=== PATIENT | female | born 1980 | race Caucasian/White ===

== ENCOUNTER 2016-08-17 17:23 | Emergency (ER) | payer SELFPAY ==
--- NOTE | 2016-08-17 17:29 | ER Document Report ---
ED Medical Screen (RME) - General Stated Complaint: RIGHT EAR/ NECK PAIN Mode of Arrival: Ambulatory Information source: Patient Notes: Patient presents emergency department with right-sided neck pain for the past week. Denies trauma. Denies fever or diarrhea reports vomited 2 days ago when she started her menses. I have greeted and performed a rapid initial assessment of this patient. A comprehensive ED assessment and evaluation of the patient, analysis of test results and completion of the medical decision making process will be conducted by additional ED providers. TRAVEL OUTSIDE OF THE [place] IN LAST 30 DAYS: No - Related Data Allergies/Adverse Reactions: codeine [Codeine] Adverse Reaction (Verified 09/25/12 07:18) Nausea oxycodone [Oxycodone] Adverse Reaction (Verified 09/25/12 07:18) Nausea Past Medical History Pulmonary Medical History: Denies: Hx Tuberculosis Neurological Medical History: Denies: Hx Seizures Renal/ Medical History: Reports: Hx Kidney Stones Psychiatric Medical History: Reports: Hx Depression Past Surgical History: Reports: Hx Cardiac Surgery - 'hole in heart' repair open heart surgery, Hx Section - 2, Hx Urinary Tract Surgery - urinary stent, only one functioning kidney.. Denies: Hx Hysterectomy - SERUM HCG NEGATIVE, Hx Pacemaker - Immunizations Hx Diphtheria, Pertussis, Tetanus Vaccination: Yes
[2016-08-17] MEDS ORDERED: CIPROFLOXACIN HCL/DEXAMETH OTIC DROP 7.5 ML AD ONE (20:58)
[2016-08-17] MEDS ORDERED: AMOXICILLIN TRIHYDRATE 500 MG CAPSULE PO ONE (20:58)
[2016-08-17] MEDS ORDERED: NAPROXEN 250 MG TABLET PO ONE (20:59)
--- NOTE | 2016-08-17 21:40 | ER Document Report ---
ED ENT - General Chief Complaint: Ear Pain Stated Complaint: RIGHT EAR/ NECK PAIN Mode of Arrival: Ambulatory Information source: Patient Notes: 36-year-old female presents to the emergency department complaining of intermittently persistent pain to her right ear area that radiates down her neck. Reports onset of symptoms approximately one week ago with associated metallic taste in her mouth when eating or drinking and slight sore throat. States had cough/congestion/uri symptoms over last week which have resolved. Denies fever, ear drainage, difficulty breathing or swallowing, chest pain or shortness of breath. TRAVEL OUTSIDE OF THE [place] IN LAST 30 DAYS: No - HPI Patient complains to provider of: Ear problem Onset/Duration: Intermittent, Persistent Quality of pain: Achy Severity: Moderate Pain Level: 3 Context: Recent Illness Location of pain: Ears, Neck, Throat Similar symptoms previously: No Recently seen / treated by doctor: No - Related Data Allergies/Adverse Reactions: codeine [Codeine] Adverse Reaction (Verified 08/17/16 17:30) Nausea oxycodone [Oxycodone] Adverse Reaction (Verified 08/17/16 17:30) Nausea Past Medical History - General Information source: Patient - Social History Smoking Status: Former Smoker Frequency of alcohol use: None Drug Abuse: None Lives with: Family Family History: Reviewed & Not Pertinent Pulmonary Medical History: Denies: Hx Tuberculosis Neurological Medical History: Denies: Hx Seizures Renal/ Medical History: Reports: Hx Kidney Stones. Denies: Hx Peritoneal Dialysis Psychiatric Medical History: Reports: Hx Depression Past Surgical History: Reports: Hx Cardiac Surgery - 'hole in heart' repair open heart surgery, Hx Section - 2, Hx Urinary Tract Surgery - urinary stent, only one functioning kidney.. Denies: Hx Hysterectomy, Hx Pacemaker - Immunizations Hx Diphtheria, Pertussis, Tetanus Vaccination: Yes Review of Systems - Review of Systems Constitutional: No symptoms reported EENT: See HPI Cardiovascular: No symptoms reported Respiratory: No symptoms reported Gastrointestinal: No symptoms reported Genitourinary: No symptoms reported Female Genitourinary: No symptoms reported Musculoskeletal: No symptoms reported Skin: No symptoms reported Hematologic/Lymphatic: No symptoms reported Neurological/Psychological: No symptoms reported -: Yes All other systems reviewed and negative Physical Exam - Vital signs Vitals: Temp Pulse Resp BP Pulse Ox 98.3 F 76 18 122/69 97 08/17/16 17:30 08/17/16 17:30 08/17/16 17:30 08/17/16 17:30 08/17/16 17:30 - General General appearance: Appears well, Alert In distress: None - HEENT Head: Normocephalic, Atraumatic, Other - no mastoid tenderness, swelling, erythema, or warmth Eyes: Normal Conjunctiva: Normal Pupils: PERRL Ears: Normal - lef t, Pinna tenderness - right, Tragus tenderness - right External canal: Cerumen impaction - Left external canal normal. Moderate amount of cerumen on initial evaluation of right TM. After irrigation cerumen was cleared and there appears to be a growth/mass to posterior aspect of mid external canal extending 3/4 of canal diameter however not occluding. Tympanic membrane: Normal - Left TM wnl. Right TM not visualized due to mass Hearing loss: No: Left, Right Sinus: Normal. No: Tenderness Nasal: Normal Mouth/Lips: Normal Mucous membranes: Normal, Moist Pharynx: Erythema, Tonsillar hypertrophy - right tonsil 2+. no peritonsillar abscess or exudate. left tonsil wnl. No: Normal, Blood in hypopharynx, Exudate , Peritonsillar abscess, Post nasal drainage, Retropharyngeal abscess, Uvular edema, Potential airway comprom., Other Neck: Normal. No: Anterior cervical chain, Posterior cervical chain, Lymphadenopathy, Meningismus, Subcutaneous emphysema - Respiratory Respiratory status: No respiratory distress Chest status: Nontender Breath sounds: Normal - CTAB Chest palpation: Normal - Cardiovascular Rhythm: Regular Heart sounds: Normal auscultation Pulses: Normal: Radial Normal capillary refill: Yes - Back Back: Normal, Nontender - Neurological Neuro grossly intact: Yes Cognition: Normal Orientation: AAOx4 [place] Coma Scale Eye Opening: Spontaneous [place] Coma Scale Verbal: Oriented Lisa Coma Scale Motor: Obeys Commands Lisa Coma Scale Total: 15 Speech: Normal Motor strength normal: LUE, RUE, LLE, RLE Sensory: Normal - Psychological Associated symptoms: Normal affect, Normal mood - Skin Skin Temperature: Warm Skin Moisture: Dry Skin Color: Normal Course - Re-evaluation Re-evalutation: 08/17/16 21:46 Patient hemodynamically stable, in no distress, afebrile, nontoxic, and appears well-hydrated. Discussed patient presentation and findings with ED physician Dr. Toribio who recommends treatment for possible ENT infection/otitis and will follow up with ENT on Friday. Patient appears stable for discharge at this time and agrees with home care, follow-up, and ED return precautions. - Vital Signs Vital signs: Temp Pulse Resp BP Pulse Ox 98.3 F 74 16 113/52 L 100 08/17/16 22:04 08/17/16 22:04 08/17/16 22:04 08/17/16 22:04 08/17/16 22:04 Discharge - Discharge Clinical Impression: Ear canal mass Qualifiers: Laterality: right Qualified Code(s): H93.8X1 - Other specified disorders of right ear Otitis externa Qualifiers: Otitis externa type: unspecified type Laterality: right Chronicity: acute Qualified Code(s): H60.501 - Unspecified acute noninfective otitis externa, right ear Condition: Stable Disposition: HOME, SELF-CARE Instructions: Otitis Externa ([facility]), Amoxicillin ([facility]), Tonsillitis ([facility]), Anti- Inflammatory Medication ([facility]), Use of Ear Drops ([facility]), Acetaminophen Additional Instructions: Use the provided antibiotic eardrops as directed: - Ciprodex: 4 drops into the right ear twice daily for 7 days Follow-up with ENT on Friday as discussed. Return to the emergency department for any persistent or worsening symptoms, or any concerns. Prescriptions: Amoxicillin 1 tab PO TID 7 Days Naproxen 500 mg PO BIDP PRN #10 tablet PRN Reason: Forms: Return to Work Referrals: [facility] [Provider Group] - 08/19/16
[2016-08-17 22:05] VITALS: BP 113/52
== END 2016-08-17 22:05 | disposition home or self-care (01) ==
LOC: ER 17:23
DX: H93.8X1 Other specified disorders of right ear (principal); H60.501 Unspecified acute noninfective otitis externa, right ear; H92.01 Otalgia, right ear; M54.2 Cervicalgia; Z88.6 Allergy status to analgesic agent; Z87.891 Personal history of nicotine dependence; Z87.442 Personal history of urinary calculi
CPT/HCPCS: 99283; 87070; 87880; J3490

== ENCOUNTER 2016-09-28 18:12 | Emergency (ER) | payer SELFPAY ==
[2016-09-28] MEDS ORDERED: ACETAMINOPHEN 325 MG TABLET PO ONE (19:11)
--- NOTE | 2016-09-28 19:13 | ER Document Report ---
HPI - HPI Patient complains to provider of: left knee injury Onset: Other Onset/Duration: Persistent - 2 days ago Quality of pain: Achy Pain Level: 4 Context: Patient states that she was stepping up into a truck, the wind blew the door causing it to crush her left knee. Patient complains of continued left knee pain since then. Associated Symptoms: Other - Left knee pain Exacerbated by: Movement Relieved by: Denies Similar symptoms previously: No Recently seen / treated by doctor: No - ROS ROS below otherwise negative: Yes Systems Reviewed and Negative: Yes All other systems reviewed and negative - CONSTITUTIONAL Constitutional: DENIES: Fever - NEURO Neurology: DENIES: Weakness - GASTROINTESTINAL Gastrointestinal: DENIES: Nausea, Patient vomiting - REPRODUCTIVE Reproductive: DENIES: : - MUSCULOSKELETAL Musculoskeletal: REPORTS: Extremity pain - Left knee. DENIES: Swelling - DERM Skin Color: Normal Skin Problems: None Past Medical History - General Information source: Patient - Social History Smoking Status: Current Every Day Smoker - E-cigarette Frequency of alcohol use: None Drug Abuse: None Occupation: none Lives with: Family Family History: Reviewed & Not Pertinent Patient has suicidal ideation: No Patient has homicidal ideation: No Pulmonary Medical History: Denies: Hx Tuberculosis Neurological Medical History: Denies: Hx Seizures Renal/ Medical History: Reports: Hx Kidney Stones. Denies: Hx Peritoneal Dialysis Psychiatric Medical History: Reports: Hx Depression Past Surgical History: Reports: Hx Cardiac Surgery - 'hole in heart' repair open heart surgery, Hx Section - 2, Hx Urinary Tract Surgery - urinary stent, only one functioning kidney.. Denies: Hx Hysterectomy, Hx Pacemaker - Immunizations Hx Diphtheria, Pertussis, Tetanus Vaccination: Yes Vertical Provider Document - CONSTITUTIONAL Agree With Documented VS: Yes Exam Limitations: No Limitations General Appearance: WD/WN, No Apparent Distress - INFECTION CONTROL TRAVEL OUTSIDE OF THE [place] IN LAST 30 DAYS: No - HEENT HEENT: Atraumatic, Normocephalic - NECK Neck: Normal Inspection - RESPIRATORY Respiratory: No Respiratory Distress O2 Sat by Pulse Oximetry: 99 - CARDIOVASCULAR Pulses: Normal: Posterior tibial - MUSCULOSKELETAL/EXTREMETIES Musculoskeletal/Extremeties: MAEW, Tender - Left knee tenderness to inferior and lateral compartments, no joint effusion, no laxity with varus or valgus maneuvers, No Edema - NEURO Level of Consciousness: Awake, Alert, Appropriate Motor/Sensory: No Motor Deficit - DERM Integumentary: Warm, Dry, No Rash Course - Re-evaluation Re-evalutation: 09/28/16 Patient at discharge slightly hypotensive. Review of patient's previous ER visits demonstrates that patient has a history of hypotension. Patient states she has a previous history of hypertension and denies any symptoms at present. Patient denies any lightheadedness, dizziness, chest pain or shortness of breath. - Vital Signs Vital signs: Temp Pulse Resp BP Pulse Ox 98.2 F 76 19 117/62 99 09/28/16 18:16 09/28/16 18:16 09/28/16 18:16 09/28/16 18:16 09/28/16 18:16 - Diagnostic Test Radiology reviewed: Pending, Image reviewed Procedures - Immobilization Left Knee Pre-Proc Neuro Vasc Exam: Normal Immobilizer type: Knee immobilizer Performed by: PCT Post-Proc Neuro Vasc Exam: Normal Alignment checked and good: Yes Discharge - Discharge Clinical Impression: Knee sprain Qualifiers: Encounter type: initial encounter Involved ligament of knee: unspecified ligament Laterality: left Qualified Code(s): S83.92XA - Sprain of unspecified site of left knee, initial encounter Condition: Stable Disposition: HOME, SELF-CARE Instructions: Ice & Elevation ([facility]), Use of Crutches ([facility]), Knee Immobilizing Splint ([facility]), Oral Narcotic Medication ([facility]), Sprained Knee ([facility]) Additional Instructions: Return immediately for any new or worsening symptoms Followup with your primary care provider, call tomorrow to make a followup appointment Weightbearing as tolerated Follow-up with orthopedic Dr. for any continued pain or problems Referrals: [facility] ([facility] [Provider Group] - Follow up as needed
[2016-09-28] MEDS ORDERED: HYDROCODONE/ACETAMINOPHEN 5-325 MG 6 TAB/DSPK PO PRN (20:03)
[2016-09-28 20:59] VITALS: BP 95/56
== END 2016-09-28 21:00 | disposition home or self-care (01) ==
LOC: ER 18:12
DX: S83.92XA Sprain of unspecified site of left knee, initial encounter (principal); W20.8XXA Other cause of strike by thrown, projected or falling object, initial encounter; Y93.89 Activity, other specified; Y92.810 Car as the place of occurrence of the external cause
CPT/HCPCS: 99283; 73562; L1830

== ENCOUNTER 2017-08-16 18:35 | Emergency (ER) | payer SELFPAY ==
[2017-08-16] MEDS ORDERED: IBUPROFEN 800 MG TABLET PO ONE (19:20)
--- NOTE | 2017-08-16 20:07 | RADIOLOGY REPORT (SQ) ---
EXAM DESCRIPTION: T SPINE AP/LAT COMPLETED DATE/TIME: 08/16/2017 7:40 pm REASON FOR STUDY: injury, pain COMPARISON: None. NUMBER OF VIEWS: Two views. TECHNIQUE: AP and lateral radiographic images acquired of the thoracic spine. LIMITATIONS: None. FINDINGS: MINERALIZATION: Normal. ALIGNMENT: Normal. No scoliosis. VERTEBRAE: No fracture or bone lesion. Maintained height, normal segmentation. DISCS: No significant loss of height or significant narrowing. No large osteophytes. HARDWARE: Surgical clips localized to the superior mediastinal soft tissues. MEDIASTINUM AND SOFT TISSUES: Normal heart size and aortic contour. No soft tissue abnormality. VISUALIZED LUNG HILL: Clear. OTHER: No other significant finding. IMPRESSION: NO SIGNIFICANT RADIOGRAPHIC FINDING IN THE THORACIC SPINE. TECHNICAL DOCUMENTATION: JOB ID: [id number]- All Rights Reserved Reading location - IP/workstation name: CT
--- NOTE | 2017-08-16 20:10 | RADIOLOGY REPORT (SQ) ---
EXAM DESCRIPTION: CT CERVICAL SPINE WITHOUT COMPLETED DATE/TIME: 08/16/2017 7:44 pm REASON FOR STUDY: injury, pain COMPARISON: 08/31/2008 TECHNIQUE: Axial images acquired through the cervical spine without intravenous contrast. Images re viewed with lung, soft tissue and bone windows. Reconstructed coronal and sagittal MPR images review ed. Images stored on PACS. All CT scanners at this facility use dose modulation, iterative reconstruction, and/or weight based d osing when appropriate to reduce radiation dose to as low as reasonably achievable (ALARA). [facility]: Dose Right [facility]: CareDose [facility]: Dose Right [facility]: Teradose 4D [facility]: Smart MIGSIF RADIATION DOSE: CT Rad equipment meets quality standard of care and radiation dose reduction techniq ues were employed. CTDIvol: 12.8 mGy. DLP: 273 mGy-cm. mGy. LIMITATIONS: None. FINDINGS: ALIGNMENT: Anatomic. MINERALIZATION: Normal. VERTEBRAL BODIES: No fractures or dislocation. DISCS: No significant disc disease. FACETS, LATERAL MASSES, POSTERIOR ELEMENTS: No fractures. No dislocation. No acute findings. HARDWARE: None in the spine. VISUALIZED RIBS: No fractures. LUNG APICES AND SOFT TISSUES: No pneumothorax. Surgical clips are seen within the superior mediastin um. OTHER: No other significant finding. IMPRESSION: NO ACUTE OR SIGNIFICANT FINDINGS IN THE CERVICAL SPINE. TECHNICAL DOCUMENTATION: JOB ID: [id number] Quality ID # [id number]: Final reports with documentation of one or more dose reduction techniques (e.g., Au tomated exposure control, adjustment of the mA and/or kV according to patient size, use of iterative reconstruction technique) 2010 [employer]- All Rights Reserved Reading location - IP/workstation name: CT
--- NOTE | 2017-08-16 20:30 | ER Document Report ---
ED Neck/Back Problem - General Chief Complaint: Neck Pain >24hrs old Stated Complaint: NECK/SHOULDER PAIN, BACK PAIN Time Seen by Provider: 08/16/17 19:08 Mode of Arrival: Ambulatory Information source: Patient Notes: Patient is a 37-year-old female who presents to the ER today for upper back pain , pain to the both sides of the neck 2 days. She admits to injury in 2006 and has never been "checked out" after a fall landing on her neck. Patient states that she occasionally gets pain in her neck after that but the pain over the past 2 days has been worse than what she has had before. Patient denies any radiation of the pain anywhere, any numbness or tingling, states the pain in her upper back and both sides of her neck is a "throbbing pain." She denies any chest pain. She denies any new injury. She denies any heavy lifting or increase in work. 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 TRAVEL OUTSIDE OF THE [place] IN LAST 30 DAYS: No - Related Data Allergies/Adverse Reactions: codeine [Codeine] Adverse Reaction (Verified 08/16/17 18:35) Nausea oxycodone [Oxycodone] Adverse Reaction (Verified 08/16/17 18:35) Nausea Past Medical History - General Information source: Patient - Social History Smoking Status: Never Smoker Family History: Reviewed & Not Pertinent Patient has suicidal ideation: No Patient has homicidal ideation: No Pulmonary Medical History: Denies: Hx Tuberculosis Neurological Medical History: Denies: Hx Seizures Renal/ Medical History: Reports: Hx Kidney Stones. Denies: Hx Peritoneal Dialysis Psychiatric Medical History: Reports: Hx Depression Past Surgical History: Reports: Hx Cardiac Surgery - 'hole in heart' repair open heart surgery, Hx Section - 2, Hx Urinary Tract Surgery - urinary stent, only one functioning kidney.. Denies: Hx Hysterectomy, Hx Pacemaker - Immunizations Hx Diphtheria, Pertussis, Tetanus Vaccination: Yes Review of Systems - Review of Systems Constitutional: No symptoms reported EENT: No symptoms reported Cardiovascular: No symptoms reported Respiratory: No symptoms reported Gastrointestinal: No symptoms reported Genitourinary: No symptoms reported Female Genitourinary: No symptoms reported Musculoskeletal: See HPI Skin: No symptoms reported Hematologic/Lymphatic: No symptoms reported Neurological/Psychological: No symptoms reported Physical Exam - Vital signs Vitals: Temp Pulse Resp BP Pulse Ox 98.2 F 77 16 95/68 L 100 08/16/17 18:39 08/16/17 18:39 08/16/17 18:39 08/16/17 18:39 08/16/17 18:39 - Notes Notes: PHYSICAL EXAMINATION: GENERAL: Well-appearing and in no acute distress. HEAD: Atraumatic, normocephalic. EYES: Pupils equal round and reactive to light, extraocular movements intact, sclera anicteric, conjunctiva are normal. NECK: Normal range of motion but with some pain on rotation to the right and left, supple without lymphadenopathy LUNGS: CTAB and equal. No wheezes rales or rhonchi. HEART: Regular rate and rhythm without murmurs ABDOMEN: Soft, no tenderness. No guarding, no rebound BACK: Mild thoracic and cervical vertebral tenderness, normal ROM GI/: no CVA tenderness EXTREMITIES: Normal range of motion, no pitting edema. No cyanosis. NEUROLOGICAL: Cranial nerves grossly intact. Normal sensory/motor exams. PSYCH: Normal mood, normal affect. SKIN: Warm, Dry, normal turgor, no rashes or lesions noted Course - Re-evaluation Re-evalutation: 08/16/17 20:34 CT of the cervical spine, x-ray of the thoracic spine reports no acute pathology. I will provide patient with muscle relaxers and anti-inflammatories for the pain. - Vital Signs Vital signs: Temp Pulse Resp BP Pulse Ox 98.2 F 77 16 95/68 L 100 08/16/17 18:39 08/16/17 18:39 08/16/17 18:39 08/16/17 18:39 08/16/17 18:39 Discharge - Discharge Clinical Impression: Neck pain Thoracic back pain Qualifiers: Chronicity: acute Back pain laterality: midline Qualified Code(s): M54.6 - Pain in thoracic spine Condition: Stable Disposition: HOME, SELF-CARE Additional Instructions: Return immediately for any new or worsening symptoms. Follow up with primary care provider, call tomorrow to make followup appointment. Prescriptions: Cyclobenzaprine HCl [Flexeril 10 mg Tablet] 10 mg PO TIDP PRN #15 tab PRN Reason: Ibuprofen [Motrin 800 mg Tablet] 800 mg PO Q8H PRN #30 tab PRN Reason:
[2017-08-16] MEDS ORDERED: CYCLOBENZAPRINE HCL 10 MG TABLET PO ONE (20:36)
[2017-08-16 21:02] VITALS: BP 95/61
== END 2017-08-16 21:01 | disposition home or self-care (01) ==
LOC: ER 18:35
DX: M54.2 Cervicalgia (principal); M54.6 Pain in thoracic spine
CPT/HCPCS: 72070; 72125; 99284

== ENCOUNTER 2019-03-07 19:27 | Emergency (ER) | payer SELFPAY ==
[2019-03-07] MEDS ORDERED: ONDANSETRON HCL INJ/PF 4 MG/2 ML SDV IV ONE (19:45)
[2019-03-07] MEDS ORDERED: NORMAL SALINE 1000 ML 1,000 ML IV ONE (19:45)
--- NOTE | 2019-03-07 19:46 | ER Document Report ---
ED Medical Screen (RME) - General Stated Complaint: STOMACH PAIN Time Seen by Provider: 03/07/19 19:45 Mode of Arrival: Ambulatory Information source: Patient Notes: Patient presents complaining of chronic generalized abdominal pain that she has had for years. Patient states that she came in tonight because she has had nausea occasional vomiting and occasional diarrhea. Patient denies any fever. Patient denies any urinary symptoms. I have greeted and performed a rapid initial assessment of this patient. A comprehensive ED assessment and evaluation of the patient, analysis of test results and completion of the medical decision making process will be conducted by additional ED providers. TRAVEL OUTSIDE OF THE [place] IN LAST 30 DAYS: No - Related Data Allergies/Adverse Reactions: codeine [Codeine] Adverse Reaction (Verified 08/16/17 18:35) Nausea oxycodone [Oxycodone] Adverse Reaction (Verified 08/16/17 18:35) Nausea Past Medical History Pulmonary Medical History: Denies: Hx Tuberculosis Neurological Medical History: Denies: Hx Seizures Renal/ Medical History: Reports: Hx Kidney Stones. Denies: Hx Peritoneal Dialysis Psychiatric Medical History: Reports: Hx Depression Past Surgical History: Reports: Hx Cardiac Surgery - 'hole in heart' repair open heart surgery, Hx Section - 2, Hx Urinary Tract Surgery - urinary stent, only one functioning kidney.. Denies: Hx Hysterectomy, Hx Pacemaker - Immunizations Hx Diphtheria, Pertussis, Tetanus Vaccination: Yes Physical Exam - Abdominal Tenderness: Tender - Generalized abdomen
[2019-03-07 20:21] LABS: APPEARANCE,URINE SLIGHTLY-CLOUDY; BILIRUBIN,URINE NEGATIVE (NEGATIVE); COLOR,URINE YELLOW; GLUCOSE, URINE NEGATIVE (NEGATIVE); KETONES,URINE NEGATIVE (NEGATIVE); LEUKOCYTE ESTERASE,URINE NEGATIVE (NEGATIVE); NITRITE,URINE NEGATIVE (NEGATIVE); PROTEIN,URINE NEGATIVE (NEGATIVE); URINE SPECIFIC GRAVITY 1.012; UROBILINOGEN,URINE NEGATIVE mg/dL (<2.0)
[2019-03-07 20:59] LABS: ABSOLUTE EOSINOPHILS # (AUTO) 0.3 10^3/uL (0.0-0.6); ABSOLUTE MONOCYTES (AUTO) 0.7 10^3/uL (0.1-1.4); ABSOLUTE NEUT (AUTO) 4.2 10^3/uL (1.7-8.2); BASOPHILS % (AUTO) 0.4 % (0-2); EOSINOPHILS % (AUTO) 3.9 % (0-6); HEMATOCRIT 41.1 % (36.0-47.0); HEMOGLOBIN 13.9 g/dL (12.0-15.5); LYMPHOCYTES % (AUTO) 35.9 % (13-45); MEAN CORPUSCULAR HEMOGLOBIN 29.5 pg (27.0-33.4); MEAN CORPUSCULAR VOLUME 87 fl (80-97); MONOCYTES % (AUTO) 8.9 % (3-13); PLATELET COUNT 218 10^3/uL (150-450); RED BLOOD COUNT 4.73 10^6/uL (3.72-5.28); RED CELL DISTRIBUTION WIDTH 14.9 % (11.5-14.0); SEGMENTED NEUTROPHILS % (AUTO) 50.9 % (42-78); TOTAL CELLS COUNTED % (AUTO) 100 %; WHITE BLOOD COUNT 8.3 10^3/uL (4.0-10.5)
[2019-03-07 21:57] LABS: ALBUMIN 3.6 g/dL (3.5-5.0); ALKALINE PHOSPHATASE 79 U/L (38-126); ANION GAP 9 (5-19); ASPARTATE AMINO TRANSFERASE 23 U/L (14-36); BILIRUBIN,DIRECT 0.2 mg/dL (0.0-0.4); BILIRUBIN,TOTAL 0.3 mg/dL (0.2-1.3); BLOOD UREA NITROGEN 14 mg/dL (7-20); CALCIUM 9.2 mg/dL (8.4-10.2); CARBON DIOXIDE 26 mmol/L (22-30); CHLORIDE 102 mmol/L (98-107); GLUCOSE 93 mg/dL (75-110); POTASSIUM 3.9 mmol/L (3.6-5.0); TOTAL PROTEIN 6.6 g/dL (6.3-8.2)
--- NOTE | 2019-03-07 23:42 | RADIOLOGY REPORT (SQ) ---
EXAM DESCRIPTION: CT ABDOMEN PELVIS WITHOUT IV CONTRAST COMPLETED DATE/TME: 03/07/2019 20:18 CLINICAL HISTORY: 38 years, Female, upper abd pain with n/v/d and "heartburn" x 1 year. HCG NEG COMPARISON: Prior CT from 03/22/2012 TECHNIQUE: Noncontrast CT of the abdomen/pelvis was performed. Coronal and sagittal reformations were created. Images stored on PACS. All CT scanners at this facility use dose modulation, iterative reconstruction, and/or weight based dosing when appropriate to reduce radiation dose to as low as reasonably achievable (ALARA). [facility]: Dose Right [facility]: CareDose [facility]: Dose Right [facility]: Teradose 4D [facility]: [employer] LIMITATIONS: None. FINDINGS: Limited evaluation of the lower chest reveals clear lung bases. Evaluation of the liver parenchyma reveals a fluid density lesion located within the left hepatic lobe on image 22 of series 3, incompletely assessed on this noncontrast study though most likely indicating a simple hepatic cyst. Similar finding is noted about the inferior aspect of the right hepatic lobe. Liver otherwise appears normal in its noncontrast appearance. Spleen, pancreas, gallbladder, and both adrenal glands appear normal. The right kidney is atrophic, containing a few fluid density lesions, likely indicating simple cysts. Multifocal medullary calcifications are noted about the left kidney. In addition, focal cortical scarring is noted about the lower pole of the left kidney. No hydronephrosis or hydroureter. Urinary bladder is well distended and shows no suspicious finding. Uterus shows no suspicious abnormality. Neither ovary is well visualized. Small and large bowel are normal in caliber. No evidence of bowel obstruction. Appendix is normal. Tiny fat-containing umbilical hernia. Calcifications are noted about the abdominal aorta and proximal iliac vessels. No lymphadenopathy or drainable fluid collections. Bone windows show no destructive osseous lesions. A benign-appearing sclerotic lesion located within the posterior aspect of the left iliac wing. This is unchanged from 03/22/2012, and is considered benign. No destructive osseous lesions. IMPRESSION: No acute abnormality within the abdomen or pelvis. Left medullary nephrocalcinosis. TECHNICAL DOCUMENTATION: Quality ID # [id number]: Final reports with documentation of one or more dose reduction techniques (e.g., Automated exposure control, adjustment of the mA and/or kV according to patient size, use of iterative reconstruction technique) copyright 2011 [employer]- All Rights Reserved
--- NOTE | 2019-03-07 23:54 | ER Document Report ---
ED General - General Chief Complaint: Abdominal Pain Stated Complaint: STOMACH PAIN Time Seen by Provider: 03/07/19 19:45 Mode of Arrival: Ambulatory TRAVEL OUTSIDE OF THE [place] IN LAST 30 DAYS: No - HPI Patient complains to provider of: abd pain Notes: 38 y/o presenting to ED for evaluation of epigastric abdominal pain w/ associated loose stool x1 ongoing for 1-2 days she reports that she has had intermittent abdominal pain for years but it changed over last 48 hours she has only one funcitonal kidney and is concerned about that kidney no fever or chills is having some nausea but no vomiting denies urinary or vaginal symptoms no rashes no leg swelling no loss of appetite - Related Data Allergies/Adverse Reactions: codeine [Codeine] Adverse Reaction (Verified 08/16/17 18:35) Nausea oxycodone [Oxycodone] Adverse Reaction (Verified 08/16/17 18:35) Nausea Past Medical History - General Information source: Patient - Social History Smoking Status: Former Smoker Frequency of alcohol use: None Drug Abuse: None Family History: Reviewed & Not Pertinent Patient has suicidal ideation: No Patient has homicidal ideation: No Pulmonary Medical History: Denies: Hx Tuberculosis Neurological Medical History: Denies: Hx Seizures Renal/ Medical History: Reports: Hx Kidney Stones. Denies: Hx Peritoneal Dialysis Psychiatric Medical History: Reports: Hx Depression Past Surgical History: Reports: Hx Cardiac Surgery - 'hole in heart' repair open heart surgery, Hx Section - 2, Hx Urinary Tract Surgery - urinary stent, only one functioning kidney.. Denies: Hx Hysterectomy, Hx Pacemaker - Immunizations Hx Diphtheria, Pertussis, Tetanus Vaccination: Yes Review of Systems - Review of Systems Constitutional: No symptoms reported EENT: No symptoms reported Cardiovascular: No symptoms reported Respiratory: No symptoms reported Gastrointestinal: No symptoms reported, Abdominal pain, Nausea. denies: Diarrhea, Vomiting Genitourinary: No symptoms reported Female Genitourinary: No symptoms reported Musculoskeletal: No symptoms reported Skin: No symptoms reported Hematologic/Lymphatic: No symptoms reported Neurological/Psychological: No symptoms reported Physical Exam - Vital signs Interpretation: Normal - General General appearance: Appears well, Alert - HEENT Head: Normocephalic, Atraumatic Eyes: Normal Pupils: PERRL Neck: Normal. No: Brudzinski, Kernig's, Lymphadenopathy, Meningismus - Respiratory Respiratory status: No respiratory distress Chest status: Nontender Breath sounds: Normal Chest palpation: Normal - Cardiovascular Rhythm: Regular Heart sounds: Normal auscultation Murmur: No - Abdominal Inspection: Normal Distension: No distension Bowel sounds: Normal Tenderness: Tender - epigastric. No: McBurney's point, Mart's sign, Guarding, Rebound Organomegaly: No organomegaly - Back Back: Normal, Nontender - Extremities General upper extremity: Normal inspection, Nontender, Normal color, Normal ROM, Normal temperature General lower extremity: Normal inspection, Nontender, Normal color, Normal ROM, Normal temperature, Normal weight bearing. No: Aracely's sign - Neurological Neuro grossly intact: Yes Cognition: Normal Orientation: AAOx4 Hyder Coma Scale Eye Opening: Spontaneous Lisa Coma Scale Verbal: Oriented Lisa Coma Scale Motor: Obeys Commands Hyder Coma Scale Total: 15 Speech: Normal Motor strength normal: LUE, RUE, LLE, RLE Sensory: Normal - Psychological Associated symptoms: Normal affect, Normal mood - Skin Skin Temperature: Warm Skin Moisture: Dry Skin Color: Normal Course - Re-evaluation Re-evalutation: 03/07/19 23:52 abdominal pain on exam ct and labs non-acute recommend pcp follow up as outpt for ongoing discomfort diff dx included pancreatitis, gastritis, biliary disease, renal colic prior to neg CT - Laboratory Result Diagrams: 03/07/19 20:45 03/07/19 21:25 Laboratory results interpreted by me: 03/07/19 03/07/19 20:45 21:25 RDW 14.9 H Sodium 136.6 L - Diagnostic Test Radiology reviewed: Image reviewed, Reports reviewed Discharge - Discharge Clinical Impression: Abdominal pain Qualifiers: Abdominal location: unspecified location Qualified Code(s): R10.9 - Unspecified abdominal pain Condition: Stable Disposition: HOME, SELF-CARE Instructions: Abdominal Pain ([facility]) Additional Instructions: take nausea medicine as prescribed return to the ED with worsening follow up with primary doctor for ongoing discomfort Prescriptions: Ondansetron [Zofran Odt 4 mg Tablet] 1 - 2 tab PO Q4H PRN #10 tab.rapdis PRN Reason: For Nausea/Vomiting Referrals: FAM GUERRERO MD [HONORARY] - Follow up as needed
[2019-03-08 00:18] VITALS: BP 107/63
== END 2019-03-08 00:18 | disposition home or self-care (01) ==
LOC: ER 19:27
DX: R10.13 Epigastric pain (principal); R10.816 Epigastric abdominal tenderness; R19.4 Change in bowel habit; R11.0 Nausea; Z87.891 Personal history of nicotine dependence; Z87.442 Personal history of urinary calculi
CPT/HCPCS: 99284; 96361; 96374; 36415; 83690; 84703; 85025; 80053; 81001; 74176; J2405; J7030